=== PATIENT | male | born 2000 | race Caucasian/White ===

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

== ENCOUNTER 2021-01-28 02:00 | Inpatient (IN) | payer MEDICAID ==
[~2021-01-28] VITALS: Ht 177.8 cm; Wt 57.4 kg
--- NOTE | 2021-01-28 02:10 | NUR ---
PT C/O OF RT CHEEK SWELLING X 2DAYS. PT REPORTS TROUBLE SWALLOWING. PT RT CHEEK APPEARS VERY SWOLLEN PT STATES HE HAS CRACKED TOOTH THAT MAY HAVE CAUSED IT ATTACHED TO MONIOTORS. VSS, NADIlana BED IN [facility], RAILS ENGAGED, CALL LIGHT ON LAP. Addendum: 01/28/21 at 0214 by [email or web address] PT REPORTS TOOTH PAIN, NO BLEEDING OR DISCHARGE. PT REPORTS FEVER/CHILLS
[2021-01-28] MEDS ORDERED: LIDOCAINE-MPF 1%, 5ML ONE (02:18)
[2021-01-28] MEDS ORDERED: ONDANSETRON 2MG/ML, 2ML ONE ×2 (02:25→21:11)
[2021-01-28] MEDS ORDERED: MORPHINE SULFATE 4 MG/ML, 1ML ONE ×2 (02:26→05:30)
[2021-01-28] MEDS ORDERED: MORPHINE SULFATE 4 MG/ML, 1ML IVPush ONE ×2 (02:30→05:30)
[2021-01-28] MEDS ORDERED: ONDANSETRON 2MG/ML, 2ML IVPush ONE ×2 (02:30→06:30)
[2021-01-28] MEDS ORDERED: OMNIPAQUE 350 MG/ML, 100ML BOTTLE ONE (03:04)
--- NOTE | 2021-01-28 03:08 | NUR ---
PT RESTING IN BED WITH AT BEDSIDE. PT BACK FROM CT. NADN. ATTACHED TO MONITORS. VSS. WCTM
[2021-01-28] MEDS ORDERED: CLINDAMYCIN PMX 600MG/50ML 50 ML ONE (05:30)
[2021-01-28] MEDS ORDERED: CLINDAMYCIN PMX 600MG/50ML 50 ML IV ONE (05:30)
--- NOTE | 2021-01-28 07:02 | NUR ---
RECEIVED REPORT FROM ANALIA FOWLER. PT UPRIGHT ON RNORTH ANDOVER AWAKE & COMFORTABLE, RESPONDS APPROP TO STAFF QUESTIONS, NAD, COMFORT MEASURES PROVIDED, CALL LIGHT WITHIN REACH.
--- NOTE | 2021-01-28 07:08 | NUR ---
GAVE REPORT TO YANDY FOWLER. TRANSFER OF CARE.
[2021-01-28] MEDS ORDERED: HYDROmorphone 2 MG/ML, 1ML IVPush PRN (07:30)
[2021-01-28] MEDS ORDERED: BUTALB/APAP/CAFFEINE 50MG/325MG/40MG PO PRN ×2 (07:30)
[2021-01-28] MEDS ORDERED: BACLOFEN 10 MG TABLET PO PRN (07:30)
[2021-01-28] MEDS ORDERED: GUAIFENESIN/DM 200-20MG, 10ML UDC PO PRN (07:30)
--- NOTE | 2021-01-28 07:48 | NUR ---
Pt to be admitted to [facility], room 470. Report called to EITAN.
[2021-01-28 08:00] VITALS: BP 120/72
[2021-01-28] MEDS: SENNA/DOCUSATE TABLET PO SCH (09:00)
[2021-01-28] MEDS: OXYcodone IR 5MG TABLET PO PRN ×2 (09:05→10:45)
[2021-01-28] MEDS: D5%-0.45NACL+KCL 20MEQ 1,000 ML IV SCH (09:21)
[2021-01-28 09:33] VITALS: BP 120/72
[2021-01-28] MEDS ORDERED: DEXAMETHASONE 4 MG TABLET PO ONE (10:30)
[2021-01-28] MEDS: AMPICILLIN/SULBACTAM 3 GM in SODIUM CHLORIDE 0.9% 100 ML IV SCH ×2 (11:08→18:45)
[2021-01-28] MEDS ORDERED: CLINDAMYCIN PMX 600MG/50ML 50 ML IV SCH (11:30)
[2021-01-28 13:12] VITALS: BP 118/76
[2021-01-28] MEDS ORDERED: ONDANSETRON ODT 4 MG PO PRN (14:00)
[2021-01-28] MEDS: MORPHINE SULFATE 4 MG/ML, 1ML IVPush PRN (18:07)
[2021-01-28] MEDS ORDERED: MIDAZOLAM 1 MG/ML, 2ML ONE (19:56)
[2021-01-28] MEDS ORDERED: FENTANYL PF 100 MCG/2ML ONE ×3 (19:56→21:17)
[2021-01-28] MEDS ORDERED: hydrALAzine 20 MG/ML, 1ML IV PRN (20:00)
[2021-01-28] MEDS ORDERED: MEPERIDINE/PF 25MG/0.5ML IVPush PRN (20:00)
[2021-01-28] MEDS ORDERED: FENTANYL PF 100 MCG/2ML IV PRN (20:00)
[2021-01-28] MEDS ORDERED: HALOPERIDOL 5 MG/ML IV PRN (20:00)
[2021-01-28] MEDS ORDERED: LABETALOL 5MG/ML, 20ML IV PRN (20:00)
[2021-01-28] MEDS ORDERED: OXYcodone 5 MG/5 ML ORAL.SOL UDC PO PRN (20:00)
[2021-01-28] MEDS ORDERED: HYDROmorphone 1 MG/ML, 1ML INJ IVPush PRN (20:00)
[2021-01-28] MEDS ORDERED: PROMETHAZINE 25 MG/ML, 1ML IVPush PRN (20:00)
[2021-01-28] MEDS ORDERED: DIPHENHYDRAMINE 50 MG/ML, 1ML IVPush PRN (20:00)
[2021-01-28] MEDS ORDERED: LIDOCAINE/PF 1%-EPI 1:200K, 30 ML ONE (20:05)
[2021-01-28] MEDS ORDERED: KETOROLAC 30 MG/1 ML ONE ×2 (20:24→21:11)
[2021-01-28] MEDS ORDERED: VANCOMYCIN 1,000 MG ONE (20:27)
[2021-01-28] MEDS ORDERED: LIDOCAINE/PF 1%-EPI 1:200K, 30 ML INFIL ONE (20:42)
[2021-01-28] MEDS ORDERED: VANCOMYCIN 1,000 MG IVPB ONE (20:44)
[2021-01-28] MEDS: MELATONIN 5 MG TABLET PO SCH (21:00)
[2021-01-28] MEDS ORDERED: NEOSTIGMINE 1 MG/ML, 10ML ONE (21:11)
[2021-01-28] MEDS ORDERED: SUCCINYLCHOLINE 20 MG/ML, 10ML ONE (21:11)
[2021-01-28] MEDS ORDERED: ROCURONIUM 10MG/ML,5ML ONE (21:11)
[2021-01-28] MEDS ORDERED: PROPOFOL 10 MG/ML, 20ML ONE (21:11)
[2021-01-28] MEDS ORDERED: CEFAZOLIN 1,000 MG ONE (21:11)
[2021-01-28] MEDS ORDERED: DEXAMETHASONE 4 MG/ML, 1ML ONE (21:11)
[2021-01-28] MEDS ORDERED: GLYCOPYRROLATE 0.2MG/1ML, 5ML ONE (21:11)
[2021-01-28] MEDS ORDERED: PROMETHAZINE 25 MG/ML, 1ML ONE (21:16)
[2021-01-29 00:01] VITALS: BP 108/55
[2021-01-29] MEDS: AMPICILLIN/SULBACTAM 3 GM in SODIUM CHLORIDE 0.9% 100 ML IV SCH ×3 (02:35→18:43)
[2021-01-29] MEDS: D5%-0.45NACL+KCL 20MEQ 1,000 ML IV SCH ×2 (02:35→16:51)
[2021-01-29 03:44] VITALS: BP 114/75
[2021-01-29 06:07] LABS: BASOPHILS % (AUTO) 0 % (0-1); EOSINOPHILS % (AUTO) 0 % (1-7); LYMPHOCYTES % (AUTO) 4 % (22-44); MEAN CORPUSCULAR HEMOGLOBIN 28.9 pg (27.5-34.5); MEAN CORPUSCULAR HGB CONC 32.9 g/dL (33.2-36.2); MONOCYTES % (AUTO) 11 % (2-9); NEUTROPHILS % (AUTO) 86 % (42-75); PLATELET COUNT 185 x10^3/uL (130-400); RED CELL DISTRIBUTION WIDTH 12.8 % (9.4-14.8)
[2021-01-29 06:19] LABS: ANION GAP 3 mmol/L (5-15); CALCIUM 8.9 mg/dL (8.5-10.1); CHLORIDE 106 mmol/L (98-107); CREATININE 0.67 mg/dL (0.7-1.3)
[2021-01-29 07:19] VITALS: BP 110/63
[2021-01-29] MEDS: OXYcodone IR 5MG TABLET PO PRN ×4 (08:14→21:24)
[2021-01-29] MEDS: SENNA/DOCUSATE TABLET PO SCH (10:10)
[2021-01-29] MEDS: CHLORHEXIDINE 15 ML UDC MM SCH ×2 (10:10→20:28)
[2021-01-29 14:18] VITALS: BP 115/69
[2021-01-29] MEDS: MELATONIN 5 MG TABLET PO SCH (20:28)
[2021-01-30] MEDS: AMPICILLIN/SULBACTAM 3 GM in SODIUM CHLORIDE 0.9% 100 ML IV SCH ×3 (02:03→18:38)
[2021-01-30 02:05] VITALS: BP 124/78
[2021-01-30] MEDS: D5%-0.45NACL+KCL 20MEQ 1,000 ML IV SCH (05:41)
[2021-01-30] MEDS: OXYcodone IR 5MG TABLET PO PRN ×5 (05:41→22:30)
[2021-01-30 07:52] VITALS: BP 119/75
[2021-01-30] MEDS: CHLORHEXIDINE 15 ML UDC MM SCH ×2 (08:40→21:08)
[2021-01-30] MEDS: SENNA/DOCUSATE TABLET PO SCH (08:40)
[2021-01-30 13:46] VITALS: BP 121/74
[2021-01-30] MEDS ORDERED: VANCOMYCIN PER PHARMACY MC PRN (14:30)
[2021-01-30] MEDS ORDERED: VANCOMYCIN PMX 1GM/200ML 200 ML IV ONE (14:30)
[2021-01-30] MEDS ORDERED: VANCOMYCIN 1,400 MG in SODIUM CHLORIDE 0.9% 250 ML IV ONE (15:00)
[2021-01-30] MEDS ORDERED: SODIUM CHLORIDE 0.9% IV ONE (15:00)
[2021-01-30] MEDS ORDERED: PHARMACOKINETIC MONITORING MC PRN (15:00)
[2021-01-30] MEDS ORDERED: VANCOMYCIN IV ONE (15:00)
[2021-01-30] MEDS ORDERED: PHARMACOKINETIC CONSULTATION MC ONE (15:00)
[2021-01-30 19:52] VITALS: BP 120/75
[2021-01-30] MEDS: MELATONIN 5 MG TABLET PO SCH (21:08)
[2021-01-31 00:25] VITALS: BP 120/72
[2021-01-31] MEDS: MORPHINE SULFATE 4 MG/ML, 1ML IVPush PRN (01:51)
[2021-01-31] MEDS ORDERED: VANCOMYCIN 1,100 MG in SODIUM CHLORIDE 0.9% 250 ML IV SCH (02:00)
[2021-01-31] MEDS: OXYcodone IR 5MG TABLET PO PRN ×2 (02:51→08:24)
[2021-01-31] MEDS: AMPICILLIN/SULBACTAM 3 GM in SODIUM CHLORIDE 0.9% 100 ML IV SCH ×2 (03:46→12:52)
[2021-01-31 05:45] LABS: BASOPHILS % (AUTO) 0 % (0-1); EOSINOPHILS % (AUTO) 1 % (1-7); LYMPHOCYTES % (AUTO) 22 % (22-44); MEAN CORPUSCULAR HEMOGLOBIN 29.5 pg (27.5-34.5); MEAN CORPUSCULAR HGB CONC 33.7 g/dL (33.2-36.2); MEAN PLATELET VOLUME 8.1 fL (7.4-10.4); MONOCYTES % (AUTO) 14 % (2-9); NEUTROPHILS % (AUTO) 63 % (42-75); PLATELET COUNT 211 x10^3/uL (130-400); RED BLOOD COUNT 4.32 x10^6/uL (4.38-5.82); RED CELL DISTRIBUTION WIDTH 12.8 % (9.4-14.8)
[2021-01-31 06:00] LABS: CHLORIDE 105 mmol/L (98-107)
[2021-01-31 06:05] LABS: ANION GAP 6 mmol/L (5-15); CALCIUM 8.9 mg/dL (8.5-10.1); CREATININE 0.52 mg/dL (0.7-1.3)
[2021-01-31] MEDS: CHLORHEXIDINE 15 ML UDC MM SCH (08:23)
[2021-01-31] MEDS: SENNA/DOCUSATE TABLET PO SCH (08:24)
[2021-01-31] MEDS ORDERED: IBUP-1221 PO (12:32)
[2021-01-31] MEDS ORDERED: AMOX1TAB64 PO (12:32)
[2021-01-31] MEDS ORDERED: OXYC5TAB98 PO (12:32)
[2021-01-31] MEDS ORDERED: CHLO15MO MM (12:32)
[2021-01-31 14:30] VITALS: BP 127/78
== END 2021-01-31 15:40 | disposition home or self-care (01) | DRG 144 ==
LOC: ED 02:15 → EDIP 06:53 → 4NE 07:55 → 4EST 01-30 16:15
PROVIDERS: ADMIT Hospitalist; ATTEND Internal Medicine
PROC: 0NQV0ZZ Repair Left Mandible, Open Approach (ICD-10-PCS; 2021-01-28)
PROC: 0J910ZZ Drainage of Face Subcutaneous Tissue and Fascia, Open Approach (ICD-10-PCS; 2021-01-28)
PROC: 0NQT0ZZ Repair Right Mandible, Open Approach (ICD-10-PCS; 2021-01-28)
PROC: 0CDWXZ1 Extraction of Upper Tooth, Multiple, External Approach (ICD-10-PCS; 2021-01-28)
PROC: 0CDXXZ1 Extraction of Lower Tooth, Multiple, External Approach (ICD-10-PCS; principal; 2021-01-28 20:30)
DX: K12.2 Cellulitis and abscess of mouth (principal); J36 Peritonsillar abscess; L02.01 Cutaneous abscess of face; L03.211 Cellulitis of face; F12.90 Cannabis use, unspecified, uncomplicated; K02.9 Dental caries, unspecified; K04.7 Periapical abscess without sinus; S02.5XXA Fracture of tooth (traumatic), initial encounter for closed fracture; Z20.822 Contact with and (suspected) exposure to COVID-19
CPT/HCPCS: 36415; 70100; 70487; 80048; 83735; 84100; 85025; 87070; 87075; 87076; 87077; 87205; 87635; 96365; 96375; 96376; G0378; J0295; J0690; J1100; J1170; J1885; J2250; J2405; J2550; J2704; J2710; J3010; J3370; Q0162; Q9967; J0330; J2270; J3480; J7050